=== PATIENT | female | born 1935 | race Caucasian/White ===

== ENCOUNTER → 2017-11-23 | Day surgery (SDC) | payer MEDICARE ==
[~2017-11-23] MED LIST: BUPIVACAINE HCL PF 0.25% 30 ML VIAL ONE; LACTATED RINGER'S 1000 ML INJ 1,000 ML ONE; ONDANSETRON HCL 4 MG/2 ML VIAL IV PUSH ONE; ceFAZolin INJ 1,000 MG VIAL ONE
--- NOTE | 2017-11-23 16:48 | TN ---
cc: Vinod Connell MD, James H MD DATE OF SURGERY: 11/23/2017 ATTENDING SURGEON: Vinod Connell MD PREOPERATIVE DIAGNOSIS: Right knee torn lateral meniscus, probable torn medial meniscus. POSTOPERATIVE DIAGNOSIS: Torn lateral meniscus, torn medial meniscus, osteoarthritis. PROCEDURE PERFORMED: Right knee arthroscopy with partial medial and lateral meniscectomy. PROCEDURE IN DETAIL: Informed consent was obtained. The patient was taken to the operating room and placed in the supine position on the operating table. She was administered general anesthesia by Dr. Clifton of the anesthesia department. A tourniquet was applied to the right thigh. The right leg was then prepped with Betadine soap followed by Betadine paint. Draping commenced with a sterile down sheet, sterile U drape. Sterile stockinette was placed over the foot and calf. This was wrapped with Coban. An extremity drape was applied. A timeout was held to confirm. The patient had been given a gram of Ancef prior to the initiation of operative procedure. At that time, the leg was elevated. The table was elevated and the tourniquet was inflated to 300 mmHg. The leg was allowed to drop over the side of the operating table. An 18-gauge spinal needle was placed in the region of the lateral patellar portal. This was infiltrated the 4 mL of 0.25% Marcaine with epinephrine. Infiltration was also performed in the medial infrapatellar portal and the transpatellar tendon portal region. A small incision was made with an 11-blade in the lateral infrapatellar portal and the arthroscopic cannula was placed. Second incision was placed in the region of the transpatellar tendon portal. Inflow cannula was placed. Diagnostic arthroscopy commenced. The medial compartment was examined. There were some mild partially grade 2 chondromalacia changes noted on the medial femoral condyle. The medial meniscus had some tearing in the mid portion and around towards the posterior horn. A medial portal was established. The meniscus was probed. There was tearing in the undersurface of the posteromedial corner. This area was debrided with a shaver and clear yellow fluid from the patient's popliteal cyst was seen expressing into the knee. This was totally drained. There was a flap of the medial meniscus in zone 2, which was catching on the condyle and this was debrided. The meniscus was then debrided to a stable rim and trimmed utilizing the high-speed shaver. Next, the scope was moved over the intercondylar notch to edge of the lateral compartment. The leg was placed in a [id number] position. The patient was found to have tearing of the lateral meniscus, which included a flap of the posterior horn region, a horizontal cleavage tear in the mid portion and zone 5. There was a soft tissue bridge in front of the popliteus tendon. Utilizing upbiting basket forceps and Karen shaver, the lateral meniscus was also debrided to a stable rim. There were grade 3 and 4 chondromalacia changes noted in the lateral compartment. Scope was maneuvered into the intercondylar notch. Anterior and posterior cruciate ligaments were examined. These appeared normal. The scope was placed in the posteromedial and posterolateral compartments. These appeared normal. The scope was placed in the undersurface of the patella. There were grade 2 changes of chondromalacia seen in the patella and trochlear groove. There was some debridement performed in the plica region; however, no pathologic plicas were seen. At that time, the knee was thoroughly irrigated and suctioned. All cannulas were removed. Each portal was closed with a single 4-0 nylon interrupted stitch. A second stitch was placed in the lateral portal. Band-Aids, 4 x 4, Sof-rol and an Warren wrap were applied to the patient's knee. At that time, the tourniquet was deflated. Total tourniquet time was 36 minutes. The patient tolerated the procedure well and was then taken to recovery room in stable condition. At the completion of the procedure, sponge counts, instrument counts and needle counts were correct. Estimated blood loss was less than 10 mL. MD JAY JAY Delatorre/ , 04:27 PM , 04:48 PM
== END | disposition home or self-care (01) ==
LOC: ESDC 13:54
PROVIDERS: ATTEND Orthopaedic Surgery
DX: S83.241A Other tear of medial meniscus, current injury, right knee, initial encounter (principal); S83.281A Other tear of lateral meniscus, current injury, right knee, initial encounter
CPT/HCPCS: 01400; 29880; J0690; J2405; J3010; J7120